=== PATIENT | male | born 1970 | race Caucasian/White ===

== ENCOUNTER 2020-09-23 06:09 | Emergency (ER) | payer OTHER ==
[~2020-09-23] VITALS: Ht 182.9 cm; Wt 83.9 kg
[~2020-09-23 06:09] MED LIST: AMPDEX5 PO; ATEN25 PO; CIPR500 PO; DIAZ5 PO; DULO60 PO; HYDACE5 PO; HYDPAM50 PO; METR500 PO; OMEP20ER PO; OXYACE5T PO; RXOXYACE PO; TAMS.4ER PO
[2020-09-23] MEDS ORDERED: CLIN300 PO (06:27)
== END 2020-09-23 06:40 | disposition home or self-care (01) ==
LOC: ER 06:09
DX: L03.114 Cellulitis of left upper limb (principal); K21.9 Gastro-esophageal reflux disease without esophagitis; I10 Essential (primary) hypertension; F17.200 Nicotine dependence, unspecified, uncomplicated; Z79.899 Other long term (current) drug therapy
CPT/HCPCS: 99283; A9270

== ENCOUNTER → 2021-04-03 | Outpatient (CLI) | payer OTHER ==
[~2021-04-03] MED LIST changes: +CLIN300 PO
== END | disposition home or self-care (01) ==
LOC: LAB 13:00 → LAB SHORT 13:00
DX: L02.91 Cutaneous abscess, unspecified (principal)
CPT/HCPCS: 87070; 87075; 87077; 87147; 87186; 87205

== ENCOUNTER 2022-05-03 20:42 | Emergency (ER) | payer OTHER ==
[~2022-05-03] VITALS: Ht 182.9 cm; Wt 86.2 kg
[2022-05-03 22:29] LABS: BASOPHILS ABSOLUTE AUTO 0.02 K/mm3 (0.00-0.23); BASOPHILS PERCENT AUTO 0 % (0-2); EOSINOPHILS ABSOLUTE AUTO 0.06 K/mm3 (0.00-0.68); EOSINOPHILS PERCENT AUTO 1 % (0-6); Hematocrit 42.4 % (37.0-53.0); Hemoglobin 13.9 g/dL (13.5-17.5); IMMATURE GRAN ABSOLUTE AUTO 0.02 K/mm3 (0.00-0.10); IMMATURE GRAN PERCENT AUTO 0 % (0-1); LYMPHOCYTES PERCENT AUTO 14 % (21-46); MONOCYTES ABSOLUTE AUTO 0.66 K/mm3 (0.16-1.47); MONOCYTES PERCENT AUTO 9 % (4-13); Mean Corpuscular HGB 29.5 pg (26.0-34.0); Mean Corpuscular HGB Conc 32.8 g/dL (31.5-36.5); Mean Corpuscular Volume 90 fL (80-100); Mean Platelet Volume 10.5 fL (9.1-12.4); NEUTROPHILS ABSOLUTE AUTO 5.51 K/mm3 (1.96-9.15); NEUTROPHILS PERCENT AUTO 76 % (41-73); Platelet Count 246 K/mm3 (150-400); RDW Coefficient Variation 12.9 % (11.7-14.2); RDW Standard Deviation 42.2 fL (35.1-46.3); Red Blood Cell Count 4.71 M/mm3 (4.30-5.90); White Blood Cell Count 7.27 K/mm3 (4.00-11.30)
[2022-05-03 22:50] LABS: Bun/Creatinine Ratio 18.7 (12.0-20.0); Calcium, Blood 8.9 mg/dL (8.5-10.1); Creatinine, Blood 0.7 mg/dL (0.60-1.20); Potassium, Blood 3.9 mmol/L (3.5-5.5)
[2022-05-04] MEDS ORDERED: NARCAN4 M1
== END 2022-05-04 00:22 | disposition home or self-care (01) ==
LOC: ER 20:42
PROVIDERS: Emergency Medicine
DX: T40.2X1A Poisoning by other opioids, accidental (unintentional), initial encounter (principal); R40.4 Transient alteration of awareness; I10 Essential (primary) hypertension; F17.210 Nicotine dependence, cigarettes, uncomplicated
CPT/HCPCS: 36415; 80048; 85025; 93005; 93010; J2310

== ENCOUNTER 2023-08-21 15:58 | Emergency (ER) | payer OTHER ==
[~2023-08-21] VITALS: Ht 182.9 cm; Wt 47.6 kg
[~2023-08-21 15:58] MED LIST changes: +NARCAN4 M1
[2023-08-21] MEDS ORDERED: Methadone HCL 10 MG TAB PO ONE (16:30)
[2023-08-21 16:44] VITALS: BP 151/95
== END 2023-08-21 16:49 | disposition home or self-care (01) ==
LOC: ER 15:58
DX: Z76.0 Encounter for issue of repeat prescription (principal); F17.200 Nicotine dependence, unspecified, uncomplicated; K21.9 Gastro-esophageal reflux disease without esophagitis
CPT/HCPCS: 99281; A9270

== ENCOUNTER 2023-09-14 18:42 | Emergency (ER) | payer OTHER ==
[~2023-09-14] VITALS: Ht 182.9 cm; Wt 77.1 kg
[2023-09-14 19:16] VITALS: BP 118/78
[2023-09-14] MEDS ORDERED: Methadone HCL 10 MG TAB PO ONE (20:15)
[2023-09-14] MEDS ORDERED: Methadone HCL 10 MG TAB ONE (20:28)
== END 2023-09-14 20:36 | disposition home or self-care (01) ==
LOC: ER 18:42
DX: Z76.0 Encounter for issue of repeat prescription (principal); F11.90 Opioid use, unspecified, uncomplicated; K21.9 Gastro-esophageal reflux disease without esophagitis; I10 Essential (primary) hypertension; F17.210 Nicotine dependence, cigarettes, uncomplicated
CPT/HCPCS: 99281; A9270

== ENCOUNTER 2024-08-22 20:22 | Emergency (ER) | payer OTHER ==
[~2024-08-22] VITALS: Ht 182.9 cm; Wt 77.1 kg
[2024-08-22 20:58] LABS: BASOPHILS ABSOLUTE AUTO 0.03 K/mm3 (0.00-0.23); BASOPHILS PERCENT AUTO 1 % (0-2); EOSINOPHILS ABSOLUTE AUTO 0.21 K/mm3 (0.00-0.68); EOSINOPHILS PERCENT AUTO 3 % (0-6); Hematocrit 40.2 % (37.0-53.0); Hemoglobin 13.4 g/dL (13.5-17.5); IMMATURE GRAN ABSOLUTE AUTO 0.01 K/mm3 (0.00-0.10); IMMATURE GRAN PERCENT AUTO 0 % (0-1); LYMPHOCYTES ABSOLUTE AUTO 2.29 K/mm3 (0.84-5.20); LYMPHOCYTES PERCENT AUTO 36 % (21-46); MONOCYTES ABSOLUTE AUTO 0.61 K/mm3 (0.16-1.47); MONOCYTES PERCENT AUTO 10 % (4-13); Mean Corpuscular HGB 29.3 pg (26.0-34.0); Mean Corpuscular HGB Conc 33.3 g/dL (31.5-36.5); Mean Corpuscular Volume 88 fL (80-100); Mean Platelet Volume 9.7 fL (9.1-12.4); NEUTROPHILS ABSOLUTE AUTO 3.29 K/mm3 (1.96-9.15); NEUTROPHILS PERCENT AUTO 51 % (41-73); Platelet Count 306 K/mm3 (150-400); RDW Coefficient Variation 12.8 % (11.7-14.2); RDW Standard Deviation 41.4 fL (35.1-46.3); Red Blood Cell Count 4.58 M/mm3 (4.30-5.90); White Blood Cell Count 6.44 K/mm3 (4.00-11.30)
[2024-08-22 21:18] LABS: Albumin, Blood 3.5 g/dL (3.4-5.0); Albumin/Globulin Ratio 0.9 (0.8-1.8); Bilirubin, Total 0.3 mg/dL (0.1-1.0); Bun/Creatinine Ratio 17.3 (12.0-20.0); Calcium, Blood 9.1 mg/dL (8.5-10.1); Creatinine, Blood 0.69 mg/dL (0.60-1.20); Globulin, Blood 4.1 g/dL (2.2-4.0); Potassium, Blood 3.7 mmol/L (3.5-5.5); Total Protein, Blood 7.6 g/dL (6.4-8.2)
[2024-08-23] MEDS ORDERED: FentaNYL Citrate 50 MCG/ML 2 ML Injection IV PRN (03:45)
[2024-08-23 04:11] LABS: Source, Urine Clean Catch
[2024-08-23 04:20] LABS: Bilirubin, Urine Neg (Neg); Blood, Urine Neg (Neg); Color, Urine Yellow (P-Yellow); Glucose Qualitative, Urine Neg (Neg); Ketones, Urine Neg (Neg); Leukocyte Esterase, Urine Neg (Neg); Nitrite, Urine Neg (Neg); Protein, Urine 1+ (Neg); Urobilinogen, Urine 1+ (Normal)
[2024-08-23 04:26] LABS: Appearance, Urine Clear (Clear)
[2024-08-23] MEDS ORDERED: DOCU100 PO (05:13)
[2024-08-23 07:05] VITALS: BP 151/101
== END 2024-08-23 07:54 | disposition home or self-care (01) ==
LOC: ER 20:22
PROVIDERS: Emergency Medicine
DX: K40.90 Unilateral inguinal hernia, without obstruction or gangrene, not specified as recurrent (principal); I10 Essential (primary) hypertension; K21.9 Gastro-esophageal reflux disease without esophagitis; F17.210 Nicotine dependence, cigarettes, uncomplicated; Z59.89 Other problems related to housing and economic circumstances
CPT/HCPCS: 74177; 80053; 83690; 85025; 99284-25; Q9967